=== PATIENT | male | born 1965 ===

== ENCOUNTER 2021-05-19 14:20 | Emergency (ER) | payer OTHER, SELFPAY ==
--- NOTE | ~2021-05-19 | CT_ITS ---
EXAMINATION: CT HEAD WITHOUT CONTRAST CLINICAL INFORMATION: head trauma, hx depressed skull fx, hx SDH x2 COMPARISON: Dictated report CT head January 27, 2007. Images are not available for review. TECHNIQUE: Contiguous axial imaging was performed from the skull base to vertex without intravenous administration of contrast. Coronal and sagittal reformatted images are performed at CT scanner This CT examination was performed using dose optimization techniques as appropriate, variously including the following: *Automated exposure control *Adjustment of mA and/or kV according to patient size (this includes techniques or standardized protocols for targeted exams where dose is matched to indication/reason for exam; i.e. extremities or head) *Use of iterative reconstruction technique DLP: 729 mGy-cm FINDINGS: Status post left parietal craniotomy. Partial visualization of a orthopedic plate and screw at the anterior wall of the maxillary sinuses bilateral. No acute intracranial abnormality. There is no evidence of acute intracranial hemorrhage or territorial infarction. No abnormal mass effect or midline shift is seen. Keller to white matter differentiation is well preserved. No extra-axial fluid collections are identified. The ventricles are normal in size. There is no abnormal attenuation within the brain parenchyma. Normal aeration of visualized paranasal sinuses and the mastoid air cells and middle ear cavities. CT/CT head/brain wo con IMPRESSION: No acute intracranial pathology.
[2021-05-19 14:28] VITALS: BP 153/94; PULSE 84; RESP 18; TEMP 36.7; O2SAT 98; BMI 25.1
--- NOTE | 2021-05-19 16:05 | ED_ITS ---
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 He did not lose consciousness and he is not on anticoagulation. He reports active bleeding despite holding adequate pressure to the area. He denies headache, N/V, vision changes. Onset (ago): hour(s) (3) Location: scalp Place: work Patient tetanus UTD: No Context: accidental Associated symptoms: none Treatments prior to arrival: bandage Related Data Allergies Allergy/AdvReac Type Severity Reaction Status Date / Time latex AdvReac Unknown Verified 05/19/21 14:27 Review of Systems Constitutional: Constitutional: Denies fatigue and Denies headache(s) Eyes: Eyes: Denies change in vision, Denies diplopia, Denies loss of pe ripheral vision, Denies loss of vision and Denies other visual disturbances ENT: Denies dental pain, Denies vertigo, Denies dizziness, Denies headache(s) and Denies neck pain Cardiovascular: Cardiovascular: Denies chest pain and Denies dyspnea Respiratory: Respiratory: Denies dyspnea Gastrointestinal: Gastrointestinal: Denies nausea and Denies vomiting Musculoskeletal: Musculoskeletal: Denies abnormal gait, Denies back pain and Denies neck pain Neurologic: Denies abnormal gait, Denies vertigo, Denies dizziness, Denies headache(s) and Denies loss of vision Endocrine: Endocrine: Denies fatigue Hematologic/Lymphatic: Hematologic/Lymphatic: Denies easy bleeding and Denies easy bruising PMFSH Past Medical History Medical History (Updated 05/19/21 @ 16:47 by SUDHA Alanis) Subdural hematoma Surgical History (Updated 05/19/21 @ 14:31 by Gilma Carlson RN) History of facial surgery Social History Social History Advance Directives: Yes Advance Directives Information Provided: Yes Advance Directives on File: No Physical Exam Vital Signs: Vital Signs: Last Vital Signs Temp 98.0 F 05/19/21 14:28 Pulse 84 05/19/21 14:28 Resp 18 05/19/21 14:28 BP 153/94 H 05/19/21 14:28 Pulse Ox 98 05/19/21 14:28 Body Mass Index 25.1 Const: General: cooperative, healthy appearing, well developed, alert, awake and Physically active Orientation/consciousness: patient oriented x3 HENMT: Head: No Dowell's sign, Yes laceration, No raccoon eyes and Yes scalp lesion (left parietal skull depression, chronic) Head images: 1. 5cm laceration with oozing Ears: hearing grossly normal bilaterally and TM's normal bilaterally General nose exam: Normal external nose present and Normal nares present Face and sinus: Yes normal facial exam Mouth: Normal oral and palatal mucosa present, lip normal and tongue normal Teeth and gingiva: dentition normal Throat: Yes posterior oropharynx normal, Yes uvula midline and Yes posterior oropharynx abnormal Eyes: General: appearance normal, both eyes and all related structures Pupils: Equal, round and reactive pupils present Neck: Neck: Yes normal visual inspection, Yes full ROM, Yes no lymphadenopathy, No anterior neck swelling and No tender Chest: Chest palpation & inspection: normal inspection of the chest Resp: Effort & Inspection: normal respiratory effort and able to speak in complete sentences Cardio: Rate: regular rate Rhythm: regular rhythm Back/Spine/Pelvis: Cervical Spine: normal cervical lordosis, cervical ROM normal, No cervical muscular tenderness, No Cervical spine tenderness and No step off deformity Skin: General skin exam: no rashes or lesions noted Neuro: General: patient oriented x3 and gait normal Cranial nerves: Yes Equal, round and reactive pupils present Psych: Appearance: grossly normal and well kempt Mental Status: mental status grossly normal Speech and movement: Normal speech and movement present Course Course Course Narrative: 56 y/o male presenting with scalp laceration s/p trauma at work. No LOC. He has hx SDH and depressed skull fracture. The laceration is directly next to the depression. Given his history will get CT head to r/o recurrence. Extensive wound care and cleaning performed. Wound stapled closed with good effect. Tdap given. He is neurologically intact and denies headache at this time. Reevaluation(s) Reevaluation #1: CT head negative. He is stable for discharge home. Wound care discussed. Procedures Laceration Laceration 1: Site: scalp Size (cm): 5 Description: linear Depth: simple, single layer Pre-repair: irrigated extensively Size (cm): other (kasia, 5) Discharge Plan Discharge Clinical Impression: Laceration of scalp Qualifiers: Encounter type: initial encounter Qualified Code(s): S01.01XA - Laceration without foreign body of scalp, initial encounter Patient Disposition: Home, Self-Care Instructions: Laceration (ED) Additional Instructions: [place] were placed to close your laceration. They will need to be removed in 7- 10 days. Do not get wound wet for 24 hours. After this you can briefly wash with soap and water. Use bactitracin two times per day. Your CT scan was negative. Follow up with your doctor as needed. Take Tylenol and/or Motrin as needed for headache.
[2021-05-19] MEDS: Diphth,Pertus(ACell),Tet Adult 0.5 ML SYRINGE IM (16:42)
== END 2021-05-19 17:50 | disposition home or self-care (01) ==
PROVIDERS: Emergency Provider Emergency Medicine Emergency Medical Services
DX: S01.01XA Laceration without foreign body of scalp, initial encounter (principal); W22.09XA Striking against other stationary object, initial encounter; Y93.89 Activity, other specified; Y92.9 Unspecified place or not applicable; Y99.0 Civilian activity done for income or pay
CPT/HCPCS: 12002; 70450; 90471; 90715; 99283; 99284

== ENCOUNTER 2021-05-27 12:58 | Emergency (ER) | payer SELFPAY ==
--- NOTE | 2021-05-27 13:20 | ED_ITS ---
HPI - Wound/Laceration General Chief Complaint: Wound/Laceration Stated Complaint: Suture Removal Time Seen by Provider: 05/27/21 13:20 Source: patient Mode of arrival: ambulatory Limitations: no limitations History of Present Illness HPI narrative: 56 y/o male presenting for staple removal. He was seen her initially on 05/19 for a lac to his scalp sustained at work. [place] were placed for wound closure with good effect and CT head was normal. He reports no issues with the wound. No pain, no bleeding, swelling or discharge. Onset (ago): week(s) Location: scalp Place: work Patient tetanus UTD: Yes Context: accidental Associated symptoms: none Related Data Allergies Allergy/AdvReac Type Severity Reaction Status Date / Time latex AdvReac Unknown Verified 05/19/21 14:27 Review of Systems Review of Systems: Constitutional: No Fever, No Chills Gastrointestinal: No Nausea, No Vomiting Skin: + Skin Lesions, No rash Neuro: No Weakness, No Numbness, No Dizziness, No Headache Heme/Lymph: No Bruising PMFSH Past Medical History Medical History (Updated 05/27/21 @ 13:21 by SUDHA Alanis) Subdural hematoma Surgical History (Updated 05/19/21 @ 14:31 by Gilma Carlson RN) History of facial surgery Social History Social History Advance Directives: Yes Advance Directives Information Provided: Yes Advance Directives on File: No Physical Exam Vital Signs: Vital Signs: Last Vital Signs Temp 98 F 05/27/21 13:21 Pulse 67 05/27/21 13:21 Resp 18 05/27/21 13:21 BP 157/88 H 05/27/21 13:21 Pulse Ox 99 05/27/21 13:21 Body Mass Index 25.8 Appearance: Alert. Oriented X3. No acute distress. HEENT: left parietal area with well healed wound, kasia in place with approprite wound closure. Small amout of dried blood on the wound anteriorly, no active bleeding, nontender, no ertythema or drainage. CVS: Normal heart rate and rhythm. Pulses normal. Respiratory: No respiratory distress. Skin: Skin warm and dry. Normal skin color. Normal skin turgor. No rashes. Extremities: atraumatic, normal inspection. Neuro: Oriented X 3. No motor deficit. No sensory deficit. Course Course Course Narrative: 56 y/o male presenting for staple removal from scalp wound. It is healing appropriately. All kasia removed and wound appears well. No infection. Bacitracin applied and care discussed. Stable for d/c home. Discharge Plan Discharge Clinical Impression: Encounter for staple removal Patient Disposition: Home, Self-Care Additional Instructions: Use bacitracin to the wound 1-2 times per day. Follow up with your doctor as needed. Interventions: ED Discharge Assessment Last Done: 05/27/21 13:29 Discharge Date/Time: 05/27/21 13:30
[2021-05-27 13:21] VITALS: BP 157/88; PULSE 67; RESP 18; TEMP 36.6; O2SAT 99; BMI 25.8
== END 2021-05-27 13:30 | disposition home or self-care (01) ==
LOC: HO.ED 13:27
PROVIDERS: Emergency Provider Emergency Medicine; PCP Family Medicine
DX: Z48.02 Encounter for removal of sutures (principal)
CPT/HCPCS: 99283